=== PATIENT | female | born 1955 | race Native Hawaiian/Other Pacific Islander ===

== ENCOUNTER 2016-09-23 12:03 | Outpatient (CLI) | payer OTHER | END 2016-09-23 19:09 | disposition home or self-care (01) | LOC: LABW 12:03 | DX: B35.1 Tinea unguium (principal) | CPT/HCPCS: 36415; 84450; 84460 ==

== ENCOUNTER 2017-03-09 15:16 | Emergency (ER) | payer OTHER ==
[~2017-03-09] VITALS: Ht 162.6 cm; Wt 99.9 kg
[2017-03-09 15:29] VITALS: TEMP 97.6
[2017-03-09 16:10] VITALS: BP 159/62
== END 2017-03-09 16:10 | disposition home or self-care (01) ==
LOC: ED 15:16
DX: S80.01XA Contusion of right knee, initial encounter (principal); M17.11 Unilateral primary osteoarthritis, right knee; W18.09XA Striking against other object with subsequent fall, initial encounter; Y92.098 Other place in other non-institutional residence as the place of occurrence of the external cause
CPT/HCPCS: 99282

== ENCOUNTER 2018-06-30 08:58 | Outpatient (CLI) | payer OTHER ==
[2018-06-30 09:19] LABS: PLATELET COUNT 234 K/uL (152-353)
[2018-06-30 09:34] LABS: POTASSIUM 4.4 mmol/L (3.6-5.2)
== END 2018-06-30 19:31 | disposition home or self-care (01) ==
LOC: LABW 08:58
PROVIDERS: Specialist
DX: N18.4 Chronic kidney disease, stage 4 (severe) (principal); I10 Essential (primary) hypertension; E11.65 Type 2 diabetes mellitus with hyperglycemia; E78.2 Mixed hyperlipidemia; R53.83 Other fatigue; D64.89 Other specified anemias; E66.09 Other obesity due to excess calories
CPT/HCPCS: 36415; 80053; 80061; 83036; 84439; 84443; 85027